=== PATIENT | female | born 2000 | race African-American/Black ===

== ENCOUNTER 2020-07-04 13:05 | Emergency (ER) | payer MEDICAID ==
[~2020-07-04] VITALS: Ht 180.3 cm; Wt 59.0 kg
[2020-07-04 13:59] VITALS: BP 127/62
== END 2020-07-04 15:21 | disposition home or self-care (01) ==
LOC: ER 13:05
DX: N75.0 Cyst of Bartholin's gland (principal); Z88.6 Allergy status to analgesic agent